=== PATIENT | female | born 1960 | race Caucasian/White ===

== ENCOUNTER → 2022-11-24 | Outpatient (CLI) | payer OTHER ==
--- NOTE | 2022-11-24 15:35 | Diagnostic Imaging Report ---
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 TECHNIQUE: Patient was administered 25.5 mCi of technetium-99m MDP intravenously, and whole body imaging was performed after a three-hour delay. COMPARISON: No prior studies are available for comparison. FINDINGS: There is normal uptake of activity by the axial and appendicular skeleton. There is uptake by the kidneys with excretion into the urinary bladder. There are numerous abnormal foci identified. There is abnormal uptake throughout the cervical, thoracic, and lumbar spine as well as the bony pelvis. There is uptake involving bilateral ribs as well as the proximal femora bilaterally. Findings are consistent with diffuse osseous metastatic disease. IMPRESSION: Diffuse osseous metastatic disease. Dictated by: Dictated on workstation # [id number]
== END ==
LOC: CARD 12:00
PROVIDERS: ATTEND Internal Medicine Hematology & Oncology
DX: C73 Malignant neoplasm of thyroid gland (principal); C78.01 Secondary malignant neoplasm of right lung; C79.51 Secondary malignant neoplasm of bone
CPT/HCPCS: 78306; A9503

== ENCOUNTER 2022-11-28 13:27 | Outpatient (CLI) | payer OTHER ==
[~2022-11-28] VITALS: Ht 167 cm; Wt 70.0 kg
[2022-11-28] MEDS ORDERED: FENT1PAT9 TD (14:03)
== END 2022-11-28 14:21 | disposition home or self-care (01) ==
LOC: PREOP 13:27
PROVIDERS: ATTEND Surgery
DX: Z01.818 Encounter for other preprocedural examination (principal); C34.90 Malignant neoplasm of unspecified part of unspecified bronchus or lung

== ENCOUNTER 2022-12-02 13:36 | Day surgery (SDC) | payer OTHER ==
[~2022-12-02] VITALS: Ht 167 cm; Wt 70.0 kg
[2022-12-02] VITALS (8 sets, daily range): BP systolic 113–143; BP diastolic 69–98
[~2022-12-02 13:36] MED LIST: FENT1PAT9 TD
[2022-12-02] MEDS ORDERED: 0.9% SODIUM CHLORIDE PF INJ 20 ML VIAL ONE (13:47)
[2022-12-02] MEDS ORDERED: HEParin (CENTRAL IV FLUSH) 500 UNIT/5 ML SYR ONE (13:48)
[2022-12-02] MEDS ORDERED: BUP/EPI 0.25% 1:200,000 (MARCAINE) 30 ML VIAL ONE (13:48)
[2022-12-02] MEDS ORDERED: ceFAZolin INJECTION 2,000 MG in NS (IVPB) 50 ML IV ONE (14:00)
[2022-12-02] MEDS ORDERED: MIDAZOLAM 2 MG/2 ML (VERSED) VIAL ONE (14:04)
[2022-12-02] MEDS ORDERED: PROPOFOL INJECTION 50 ML IV ONE (14:04)
[2022-12-02] MEDS ORDERED: LACTATED RINGERS 1,000 ML IV PRN (14:45)
--- NOTE | 2022-12-02 14:50 | Progress Note-Pre Operative ---
Pre-Operative Progress Note Date of Available H&P: Nov 28, 2022 Date H&P Reviewed: Dec 02, 2022 Time H&P Reviewed: 14:35 History & Physical: H&P Reviewed, Patient Examed, No changes noted Pre-Operative Diagnosis: metastatic thyroid cancer KIRSTEN KOROMA DO Dec 02, 2022 14:50
[2022-12-02] MEDS ORDERED: CHLO500T4 PO (15:18)
[2022-12-02] MEDS ORDERED: ALPR0.5T7 PO (15:18)
[2022-12-02] MEDS ORDERED: DEXAMETHASONE (15:18)
[2022-12-02] MEDS ORDERED: FENT1PAT8 TD (15:18)
[2022-12-02] MEDS ORDERED: DIPH1TAB25 PO (15:18)
[2022-12-02] MEDS ORDERED: CLON0.5T4 PO (15:18)
[2022-12-02] MEDS ORDERED: [UNRECOGNIZED DRUG - CODE] PO (15:18)
[2022-12-02] MEDS ORDERED: [UNRECOGNIZED DRUG - OTHER] (15:18)
[2022-12-02] MEDS ORDERED: AMLO-250 PO (15:18)
--- NOTE | 2022-12-02 15:18 | Discharge Inst-Simple/Standard ---
Discharge Inst-Standard Patient Instructions/Follow Up Plan of Care/Instructions/FU: 2 weeks Corey Activity as Tolerated: No Discharge Diet: Regular Diet Other Inst to Patient Follow up Appt: Make appointment for 2 week. Instructions: No lifting greater than 10 pounds. No strenuous activity. May shower in 24 hours, no tub bath or soaking. Use incentive spirometer at home as directed. No Smoking Skin/Wound Care: You have special glue over your incision that will fall off on it's own. Ice pack on 15 min off 30 min and repeat for first 48 hours. This reduces swelling and discomfort. Symptoms to Report: Appetite Changes, Extremity Discoloration, Numbness/Tingling, Swelling Increased, Bleeding Excessive, Eyesight Changes, Pain Increased, Urine Color Change, Constipation(Persistent), Fever over 101 degree F, Pain/Pressure in chest, Urinating Difficulty, Cough Up/Vomit Blood, Heart Beat Irreg/Pounding, Pain/Pressure in jaw, Vaginal Bleeding Increase, Cramps in feet or legs, Lightheadedness, Pain/Pressure in shoulder, Diarrhea(Persistent), Memory Changes Suddenly, Questions/Concerns, Weight gain consecutive days, Dizziness/Fainting, Nausea/Vomiting, Shortness of Breath, Weight gain over 2 pounds If questions or concerns contact your physician Or seek help at emergency department. KIRSTEN KOROMA DO Dec 02, 2022 15:18
--- NOTE | 2022-12-02 15:21 | Progress Note-Post Operative ---
Post-Operative Progess Note Surgeon (s)/Divemaster (s) Surgeon KIRSTEN KOROMA DO Divemaster: na Pre-Operative Diagnosis metastatic thyroid cancer Post-Operative Diagnosis same Procedure & Operative Findings Date of Procedure 12/02/22 Procedure Performed/Findings PROCEDURE: Right internal jugular port placement using ultrasound guidance. COMPLICATIONS: None. INDICATIONS: The patient is a 62 year old female with metastatic thyroid cancer. Patient understands the risks and benefits of port placement and wished to proceed with the procedure. Consent was signed on the chart. PROCEDURE: The patient was taken to the operating suite, was prepped and draped in the sterile fashion. A surgical pause was performed. Ultrasound was used to locate the internal jugular vein. Once located anesthetic was infiltrated above it. Using micro-access kit, the right internal vein was accessed. Dark nonpulsatile blood was withdrawn. The wire was inserted. Fluoroscopy assured proper placement. The needle was removed. The micro-access dilator was advanced over the wire and the wire was removed. The regular wire was inserted and fluoroscopy assured proper placement. The wire was then secured. Local anesthetic was used to anesthetize from the neck for tunneling down to the right chest and for pocket creation. A 15 blade scalpel was used to make an incision over the right chest. Cautery was used to dissect down to the pectoral fascia. A pocket was created with blunt dissection. The dilator sheath was then advanced over the wire under fluoroscopy and the dilator and wire were removed. The Groshong catheter was inserted through the sheath and the sheath was then removed. The Gro[place]ong wire was removed. The catheter was then tunneled to the right chest pocket. Fluoroscopy was used to cut to length and this was then attached to the port which was then placed within the pocket. The port was then accessed without difficulty. It was then flushed with saline and then heparin. The subcutaneous tissues were then reapproximated using 3-0 Vicryl. The areas were then washed and dried. Skin Affix was placed over incision. The insertion point of the neck Skin Affix was placed over the incision. The patient tolerated the procedure well without complication and was taken to recovery room in stable condition. Chest x-ray is pending. Anesthesia Type mac c local Estimated Blood Loss Estimated blood loss (mL): minimal Specimens/Packing Specimens Removed KIRSTEN Clark DO Dec 02, 2022 15:21
[2022-12-02] MEDS ORDERED: ONDANSETRON 4 MG/2 ML (SDV) Z0FRAN IVP PRN (15:30)
[2022-12-02] MEDS ORDERED: HYDROmorphone 2 MG/ML VIAL (DILAUDID) IV ONE (15:30)
--- NOTE | 2022-12-02 15:30 | Anesthesia-General Post-Op ---
MAC Patient Condition Mental Status/LOC: Same as Preop Cardiovascular: Satisfactory Nausea/Vomiting: Absent Respiratory: Satisfactory Pain: Controlled Complications: Absent Post Op Complications Complications None Follow Up Care/Instructions Patient Instructions None needed. Anesthesiology Discharge Order Discharge Order Patient is doing well, no complaints, stable vital signs, no apparent adverse anesthesia problems. No complications reported per nursing. FRANK SHEA CRNA Dec 02, 2022 15:30
[2022-12-02] MEDS ORDERED: 0.9% SODIUM CHLORIDE PF INJ 20 ML VIAL IV ONE (15:38)
[2022-12-02] MEDS ORDERED: BUP/EPI 0.25% 1:200,000 (MARCAINE) 30 ML VIAL INJ ONE (15:39)
[2022-12-02] MEDS ORDERED: HEParin (CENTRAL IV FLUSH) 500 UNIT/5 ML SYR IV ONE (15:40)
--- NOTE | 2022-12-02 16:15 | Diagnostic Imaging Report ---
INDICATION: Status post port placement. COMPARISON: None available. TECHNIQUE: Single radiograph of the chest dated 12/02/2022. FINDINGS: A right-sided Port-A-Cath is in place with the distal tip overlying the superior aspect of the superior vena cava. No significant pneumothorax. A 2.8 cm rounded hyperdensity is noted overlying the medial right upper lung. The lungs are otherwise clear. No pleural effusion. No pneumothorax. Post surgical changes within the cervical spine. Patchy regions of sclerosis are noted involving the proximal right humerus. No acute fracture. IMPRESSION: A right-sided Port-A-Cath is in place with the distal tip overlying the superior aspect of the superior vena cava without pneumothorax. 2.8 cm rounded density overlying the medial right upper lung. This is nonspecific. This could relate to a pulmonary nodule/malignancy or potentially osseous sclerotic lesion; however, mediastinal hematoma would be an additional consideration given recent port placement. Recommend clinical correlation. Comparison to prior imaging is also recommended. Should there remain clinical concern that this relates to a mediastinal hematoma, then a CT of the chest (preferably with contrast) would be recommended. Scattered regions of sclerosis, particularly within the proximal right humerus, concerning for osseous metastatic disease. The report was called and faxed to LALY Marcano, in the office of Dr. Nicole by alma@4:12 PM. Dictated by: Dictated on workstation # [id number]
[2022-12-02] MEDS ORDERED: [UNRECOGNIZED DRUG - OTHER] (16:35)
[2022-12-02] MEDS ORDERED: Clonazepam (16:35)
[2022-12-02] MEDS ORDERED: POTA-177 PO (16:36)
[2022-12-02] MEDS ORDERED: HYDROMORPHONE (16:36)
[2022-12-02] MEDS ORDERED: THYR60TA27 PO (16:36)
[2022-12-02] MEDS ORDERED: MONT-40 PO (16:36)
[2022-12-02] MEDS ORDERED: PANT40TA52 PO (16:36)
[2022-12-02] MEDS ORDERED: NORT25CA PO (16:36)
[2022-12-02] MEDS ORDERED: DONEPEZIL (16:36)
[2022-12-02] MEDS ORDERED: FLUOXETINE (16:36)
[2022-12-02] MEDS ORDERED: MECL-149 PO (16:36)
[2022-12-02] MEDS ORDERED: GABAPENTIN (16:36)
[2022-12-02] MEDS ORDERED: MELOXICAM (16:36)
[2022-12-02] MEDS ORDERED: FOLIC ACID (16:36)
== END 2022-12-02 17:20 | disposition home or self-care (01) ==
LOC: SDC 13:36
PROVIDERS: ATTEND Surgery
DX: C79.51 Secondary malignant neoplasm of bone (principal); C78.00 Secondary malignant neoplasm of unspecified lung; E89.0 Postprocedural hypothyroidism; I87.2 Venous insufficiency (chronic) (peripheral); Z85.850 Personal history of malignant neoplasm of thyroid; Z87.891 Personal history of nicotine dependence; Z86.16 Personal history of COVID-19; Z79.890 Hormone replacement therapy
CPT/HCPCS: 36561; 71045; 76000; 87081; C1788